=== PATIENT | female | born 1985 | race Caucasian/White ===

== ENCOUNTER → 2016-08-09 | Outpatient (CLI) | payer OTHER ==
--- NOTE | 2016-08-24 02:02 | ECWPNPC ---
PATIENT NAME: ALEC MICHEL : 1985 GENDER: FEMALE VISIT DATE: 08/09/2016 DISCHARGE DATE: 08/09/16 1635 VISIT LOCKED DATE TIME: PHYSICIAN: SYDNEY MULLIGAN RESOURCE: SYDNEY MULLIGAN REASON FOR APPOINTMENT 1. CHRONIC PAIN/LUMBAR HISTORY OF PRESENT ILLNESS TODAY'S VISIT: NOTES: PT PREVIOUSLY SEEN BY RHEUMATOLOGY, NEUROLOGY (MICAH) AND DR QUINTEROS AT [facility].NOTES ONSET OF PAIN OVER ONE YEAR AGO.HAD NO PRIOR TRAUMA OR INJURY. PAIN RANGES FROM LOW BACK TO UPPER SHOULDERS. DID HAVE SOME INTERMITTANT NUMBNESS IN BOTH ARMS AND LEGS. FAY HELPS WITH THIS. RATES PAIN TODAY 6/10. RANGES BETWEEN 3-6/10THE MORE ACTIVITY THE HIGHER THE PAIN, BUT CAN EVEN AWAKEN. NO PAIN IN ARMS OR LEGS OR FEELING OF WEAKNESS. BALANCE HAS BEEN OK. HAD NOTHIS LIKE THIS PRIOR. HAS HAS 4 DIFFERENT MRI'S. HAS COMPLETED 8 WEEKS OF PT WHICH WORSENED AFTER COMPETION. AT PAIN [employer] -WAS PUT ON NSAIDS - NO IMPROVEMENT. TIZANIDINE, BACLOFEN, FLEX, NONE HAVE BEEN EFFECTIVE. HAS BEEN ON CYMBALTA FOR LESS THAN 1 MONTH. ALSO TRIALED ON AMI, NORTRI. SLEEP WAS DETERIORATING BEFORE PAIN STARTED, BUT PRIOR HAD NO SLEEP ISSUES, NO BOWELS, HAS FREQUENT HEADACHES - TENSION TO CLUSTER. ONE EVENT EVENT OF 24 HRS IN LAST 4 MONTHS. NO SKIN CHANES IN SKIN OR HAIR. WAS REFERRED TO DR ROJAS - FOUND WEAR AND TEAR ARTHRITIS, CYST UNDER RIGHT KNEE. ALL LABS WERE NEGATIVE. . NEW PATIENT CONSULT: WHEN DID YOUR PAIN FIRST START? . BRIEFLY DESCRIBE HOW YOUR PAIN STARTED? . HOW DOES YOUR PAIN CHANGE WITH TIME? . DOES YOUR PAIN AWAKEN YOU FROM SLEEP? . HOW MANY HOURS OF SLEEP DO YOU NORMALLY GET? . ANY DIAGNOSTIC TESTING? . FACILITY WHERE TESTS WERE DONE? ____. PAIN TREATMENT TREATMENT YES CANCER HAVE YOU EVER HAD ANY TYPE OF CANCER?NO NO. PAIN SCREENING: PATIENT HAS A COMPLAINT OF ACUTE OR CHRONIC PAIN YES FALL RISK SCREENING: SCREENING :NO FALLS IN THE PAST YEAR ALTMAN INVENTORY: QUESTIONNAIRE ASSESSEDYES SCORE VALUE CALCULATED NO DID REVIEW - DENIES SUICIDAL/HOMICIDAL IDEATION CURRENT MEDICATIONS TAKING GABAPENTIN 300 MG CAPSULE 1 CAPSULE ORALLY THREE TIMES A DAY TAKING BACLOFEN 10 MG TABLET 1 TABLET WITH FOOD OR MILK ORALLY TWO TIMES A DAY TAKING DULOXETINE HCL 30 MG CAPSULE DELAYED RELEASE PARTICLES 1 CAPSULE ORALLY ONCE A DAY MEDICATION LIST REVIEWED AND RECONCILED WITH THE PATIENT PAST MEDICAL HISTORY CHRONIC PAIN ARTHRITIS ALLERGIES BACTRIM: HIVES: ALLERGY SURGICAL HISTORY NONE FAMILY HISTORY FATHER: ALIVE MOTHER: ALIVE 1 SON(S) , 1 DAUGHTER(S) - HEALTHY. . SOCIAL HISTORY GENERAL: TOBACCO USE ARE YOU A:NONSMOKER ARE YOU A:NONSMOKER ALCOHOL OR DRUG TREATMENTNO PATIENT: ____. SCREENING/ASSESSMENT TOOL NUTRITION ASSESSEDYES ARE YOU ON ANY SPECIAL DIET?NO ANY SIGNIFICANT CHANGES RELATED TO EATING, WEIGHT GAIN/LOSS, OR BOWEL HABITS?NO IF YES, IS YOUR PRIMARY CARE PROVIDER AWARE OF THIS?NO SPECIAL NEEDS LEVEL OF CARE? SELF, GLASSES: NO, CONTACTS: NO, HEARING AIDS: NO, DENTURES: NO, WALKER: NO, CANE: NO, WHEELCHAIR: NO, REFERRALS NEEDED: NO. ALCOHOL SCREENING POINTS1 INTERPRETATIONNEGATIVE RECREATIONAL DRUG USE DRUG USE?NO DRUG USE?YES CAFFEINE CAFFEINE USE?NO CAFFEINE USE?YES HOW OFTEN AND HOW MUCH? 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 DIET: REGULAR. MARITAL STATUS: . OTHERS AT HOME: CHILDREN. MORAVIAN: NONE. LEARNING BARRIERS / SPECIAL NEEDS VISION IMPAIRED?YES : WEARS GLASSES LEARNING PREFERENCES?YES :DEMONSTRATION/VERBAL INSTRUCTION MISCELLANEOUS: PLAN OF CARE REVIEWED WITH PT.. MEDICATION ABUSE NO PSYCHOLOGICAL HX TREATMENTNO TREATMENTNO PAIN CLINIC PFS, CLERGY, PUBLIC HEALTH REFERRALS CLERGY REFERRAL NEEDED?NO WAS THE PROVIDER NOTIFIED OF ANY PERTINENT INFO?NO PFS REFERRAL NEEDED?NO PUBLIC HEALTH REFERRAL NEEDED?NO PFS REFERRAL NEEDED?NO CLERGY REFERRAL NEEDED?NO ADVANCED DIRECTIVES HEALTH CARE PROXY?NO POWER OF AIRCRAFT LAUNCH AND RECOVERY TECHNICIAN?NO HEALTH CARE PROXY?NO POWER OF AIRCRAFT LAUNCH AND RECOVERY TECHNICIAN?NO HOSPITALIZATION/MAJOR DIAGNOSTIC PROCEDURE NONE REVIEW OF SYSTEMS CONSTITUTIONAL: ANY CHANGE IN YOUR MEDICAL CONDITION? YES RECENTLY INFORMED SHE HAS BURSITIS IN RIGHT HIP, RIGHT KNEE CYST, AND ARTHRITIS . CHILLS NO . FEVER NO . INFECTION: DO YOU HAVE NEW INFECTIONS? NO . DO YOU HAVE HISTORY OF MRSA? NO . MUSCULOSKELETAL: ANY NEW PATTERNS OF PAIN OR NUMBNESS? NO . SYTEMIC LUPUS NO . GASTROENTEROLOGY: ANY NEW CHANGE IN BOWEL CONTROL? NO . BARRETTS ESOPHAGUS NO . CIRRHOSIS NO . HEPATITIS NO . LIVER FAILURE NO . ACID REFLUX NO . UNEXPLAINED WEIGHT LOSS NO . GENITOURINARY: ANY NEW CHANGE IN BLADDER CONTROL? NO . IS THERE A CHANCE YOU COULD BE ? NO . HEMATOLOGY/LYMPH: DO YOU TAKE ANY BLOOD THINNERS? (FOR EXAMPLE- COUMADIN, PLAVIX, AGGRENOX, PLATEL, PRADAXA, OR XARELTO) NO . WHEN WAS YOUR LAST DOSE? DATE: TIME: . LOW PLATELET COUNT NO . SICKLE CELL DISEASE NO . VON WILLIEBRANDS NO . FACTOR V LEIDEN NO . THALLASEMIA NO . ANEMIA NO . EASY BRUISING NO . NEUROLOGY: HAVE YOU FALLEN IN THE PAST 6 MONTHS? NO . ANY NEW EXTREMITY NUMBNESS OR WEAKNESS? NO . HEAD INJURY NO . DEMENTIA NO . CEREBRAL PALSY NO . MULTIPLE SCLEROSIS NO . DIZZINESS NO . HEADACHE YES INTERMITTENT . STROKES NO . VERTIGO NO . CARDIOLOGY: DO YOU HAVE A PACEMAKER OR DEFIBRILLATOR? NO . ANGINA NO . HEART ATTACK NO . HEART SURGERY NO . CONGESTIVE HEART FAILURE/FLUID OVERLOAD NO . CHEST PAIN NO . HIGH BLOOD PRESSURE NO . IRREGULAR HEART BEAT NO . RESPIRATORY: HAVE YOU BEEN SICK IN THE PAST WEEK? NO . FEVER NO . FLU LIKE SYMPTOMS? NO . CPAP NO . BYPAP NO . ASTHMA NO . EMPHYSEMA NO . CHRONIC LUNG DISEASES NO . SHORTNESS OF BREATH ON EXERTION NO . DO YOU USE ANY TYPE OF TOBACCO (SMOKE, SMOKELESS, CHEW)? NO . COUGH NO . SNORING NO . INTEGUMENTARY: DO YOU HAVE ANY RASHES OR OPEN SORES? NO . ALLERGIC/IMMUNO: ARE YOU ALLERGIC TO SHELLFISH OR IV DYE? NO . ANY NEW ALLERGIES? NO . PSYCHIATRIC: DO YOU HAVE THOUGHTS OF HURTING YOURSELF OR SOMEONE ELSE? NO . ARE YOU ABUSED, NEGLECTED, OR IN AN UNSAFE ENVIRONMENT? NO . ENDOCRINOLOGY: ARE YOU DIABETIC? NO . THYROID DISORDER NO . OTHER: DO YOU NEED ANY PRESCRIPTIONS? NO . IF YES, PLEASE LIST: ____ . ANY NEW PROBLEMS WITH YOUR MEDICATIONS? NO . WHEN DID YOU LAST EAT? ____ . WHEN DID YOU LAST DRINK? ____ . WHAT DID YOU LAST DRINK? ____ . NAME OF PERSON DRIVING YOU HOME? ____ . DO YOU HAVE ANY OTHER QUESTIONS OR CONCERNS NO . REVIEWED BY: PROVIDER: SYDNEY CRUZ . VITAL SIGNS WT 168 LBS, HT 65 IN, BMI 27.95 INDEX, BP 119/69 MM HG, HR 82 /MIN, RR 16 /MIN, TEMP 97.0 F, OXYGEN SAT % 98%, NA INITIALS SC 15:14, REVIEWED BY: MONIE. EXAMINATION GENERAL EXAMINATION: PSYCHALERT , ORIENTED X 3 , APPROPRIATE MOOD AND AFFECT , GOOD EYE CONTACT. HEENT:NORMOCEPHALIC, NO LYMPHADENOPATHY, NO THYROMEGLY. LUNGS:CLEAR TO AUSCULTATION BILATERALLY, NO WHEEZES, RALES OR RHONCHI. HEART:NORMAL S1S2, NO MURMURS, CLICK OR RUBS. ABDOMEN:SOFT AND NOT TENDER, BOWEL SOUNDS ACTIVE IN ALL QUADRANTS. MUSCULOSKELETAL:MUSCLE STRENGTH TESTING 5/5 BILATERAL UPPER AND LOWER EXTREMITIES. ABLE TO FLEX TO 90 DEREES, EXTEND TO 20 DEGREES, AND ROTATE WITHOUT DIFFICULTY. MIN PAIN WITH STRAIGHT LEG RAISE BILATERALLY. , PALPATION: POSITIVE FOR PAIN OVER L/S SPINE. POSITIVE FOR PAIN OVER L/S PARSPINALS, ELICITED WITH PALPATION OVER CERVICAL SPINOUS PROCESSES AND ACROSS THE TRAPEZIUS MUSCLES BILATERALLY. RESTRICTION OF ROM IS NOTED. , ELICITED WITH PALPATION OVER LUMBAR PARAVERTEBRAL MUSCLES AND INTO THE SECRUM. RESTRICTION OF ROM IN THIS AREA. NEUROLOGIC EXAM:DTR'S 2+ BILATERAL UPPER AND LOWER EXTREMITIES. NO SENSORY DEFICIET ELICITED TO LIGHT TOUCH UPPER OR LOWER EXTREMITIES. 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 CONSIDER INCEREASE IN DOSING SLOWLY TO 20 MG THREE TIMES PER DAY FOR SPASTICITY.CONTINUE CYMBALTA - RECOMMEND SLOWING INCREASING TO MAX 90-120 MG PER DAY. CONTINUE TENS. CONSIDER TRIGGER POINT INJECTIONS FOR FUTURE. PROCEDURE CODES FA211 ESTABILISHED PATIENT [facility] CHARGE FOLLOW UP 4-6 WEEKS ELECTRONICALLY SIGNED BY CATINA GONZALEZ ON 08/23/2016 AT 01:55 PM EST DISCLAIMER : THIS IS A VISIT SUMMARY EXTRACTED FROM THE [employer] CHART. IT IS NOT A COPY OF THE [employer] PROGRESS NOTE. MTDD
== END ==
LOC: M PAIN 15:20
PROVIDERS: ATTEND Nurse Practitioner Family
DX: Z09 Encounter for follow-up examination after completed treatment for conditions other than malignant neoplasm (principal); G89.29 Other chronic pain; M79.1 Myalgia; M51.36 Other intervertebral disc degeneration, lumbar region; Q07.00 Arnold-Chiari syndrome without spina bifida or hydrocephalus; M19.90 Unspecified osteoarthritis, unspecified site; Z88.8 Allergy status to other drugs, medicaments and biological substances; Z79.899 Other long term (current) drug therapy

== ENCOUNTER → 2016-08-11 | Outpatient (CLI) | payer OTHER | LOC: M LAB 16:21 | PROVIDERS: ATTEND Nurse Practitioner Family | DX: M79.1 Myalgia (principal) ==

== ENCOUNTER → 2016-09-06 | Outpatient (CLI) | payer OTHER ==
--- NOTE | 2016-09-23 01:54 | ECWPNPC ---
PATIENT NAME: ALEC MICHEL : 1985 GENDER: FEMALE VISIT DATE: 09/06/2016 DISCHARGE DATE: 09/06/16 1537 VISIT LOCKED DATE TIME: PHYSICIAN: SYDNEY MULLIGAN RESOURCE: SYDNEY MULLIGAN REASON FOR APPOINTMENT 1. BACK HISTORY OF PRESENT ILLNESS HISTORY OF PRESENT ILLNESS: PAIN THE PATIENT DESCRIBES THE PAIN... FALL RISK SCREENING: SCREENING :NO FALLS IN THE PAST YEAR TODAY'S VISIT: NOTES: RATES PAIN TODAU 8/10. DESCRIBES PAIN INTERMITTANT, ACHING, TENDER, THROBBING, AND SORE. PAIN IS WORSE IN THE LOW BACK WITH NO RADIATION TO HIPS OR LEGS. NO RECENT FALLS. VERY DIFFICULT TO STAY ASLEEP DUE TO PAIN. . CURRENT MEDICATIONS TAKING GABAPENTIN 300 MG CAPSULE 1 CAPSULE ORALLY THREE TIMES A DAY TAKING BACLOFEN 10 MG TABLET 1 TABLET WITH FOOD OR MILK ORALLY TWO TIMES A DAY TAKING DULOXETINE HCL 30 MG CAPSULE DELAYED RELEASE PARTICLES 1 CAPSULE ORALLY ONCE A DAY PAST MEDICAL HISTORY CHRONIC PAIN ARTHRITIS ALLERGIES BACTRIM: HIVES: ALLERGY SOCIAL HISTORY GENERAL: TOBACCO USE ARE YOU A:NONSMOKER LEARNING BARRIERS / SPECIAL NEEDS ORIENTED TO PLAN OF CARE: PATIENT, PAIN MANAGEMENT PATIENT, ORIENTED TO PLAN OF CARE: PATIENT, PAIN MANAGEMENT PATIENT. NEW PATIENT PAIN DIARY TODAY'S VISITNOTES FROM 0-10, WHAT LEVEL IS YOUR PAIN TODAY?0 PAIN CLINIC PFS, CLERGY, PUBLIC HEALTH REFERRALS PFS REFERRAL NEEDED?NO CLERGY REFERRAL NEEDED?NO PUBLIC HEALTH REFERRAL NEEDED?NO WAS THE PROVIDER NOTIFIED OF ANY PERTINENT INFO?NO PFS REFERRAL NEEDED?NO CLERGY REFERRAL NEEDED?NO PUBLIC HEALTH REFERRAL NEEDED?NO WAS THE PROVIDER NOTIFIED OF ANY PERTINENT INFO?NO REVIEW OF SYSTEMS CONSTITUTIONAL: ANY CHANGE IN YOUR MEDICAL CONDITION? NO . CHILLS NO . FEVER NO . INFECTION: DO YOU HAVE NEW INFECTIONS? NO . DO YOU HAVE HISTORY OF MRSA? NO . MUSCULOSKELETAL: ANY NEW PATTERNS OF PAIN OR NUMBNESS? NO . GASTROENTEROLOGY: ANY NEW CHANGE IN BOWEL CONTROL? NO . GENITOURINARY: ANY NEW CHANGE IN BLADDER CONTROL? NO . IS THERE A CHANCE YOU COULD BE ? NO . HEMATOLOGY/LYMPH: DO YOU TAKE ANY BLOOD THINNERS? (FOR EXAMPLE- COUMADIN, PLAVIX, AGGRENOX, PLATEL, PRADAXA, OR XARELTO) NO . WHEN WAS YOUR LAST DOSE? DATE: TIME: . NEUROLOGY: HAVE YOU FALLEN IN THE PAST 6 MONTHS? NO . ANY NEW EXTREMITY NUMBNESS OR WEAKNESS? NO . CARDIOLOGY: DO YOU HAVE A PACEMAKER OR DEFIBRILLATOR? NO . RESPIRATORY: HAVE YOU BEEN SICK IN THE PAST WEEK? NO . FEVER NO . FLU LIKE SYMPTOMS? NO . COUGH NO . INTEGUMENTARY: DO YOU HAVE ANY RASHES OR OPEN SORES? NO . ALLERGIC/IMMUNO: ARE YOU ALLERGIC TO SHELLFISH OR IV DYE? NO . ANY NEW ALLERGIES? NO . PSYCHIATRIC: DO YOU HAVE THOUGHTS OF HURTING YOURSELF OR SOMEONE ELSE? NO . ARE YOU ABUSED, NEGLECTED, OR IN AN UNSAFE ENVIRONMENT? NO . ENDOCRINOLOGY: ARE YOU DIABETIC? NO . OTHER: DO YOU NEED ANY PRESCRIPTIONS? NO . IF YES, PLEASE LIST: ____ . ANY NEW PROBLEMS WITH YOUR MEDICATIONS? NO . WHEN DID YOU LAST EAT? ____ . WHEN DID YOU LAST DRINK? ____ . WHAT DID YOU LAST DRINK? ____ . NAME OF PERSON DRIVING YOU HOME? ____ . DO YOU HAVE ANY OTHER QUESTIONS OR CONCERNS NO . REVIEWED BY: PROVIDER: SYDNEY CRUZ . VITAL SIGNS WT 173 LBS, HT 65 IN, BMI 28.79 INDEX, BP 128/79 MM HG, HR 66 /MIN, RR 16 /MIN, TEMP 96.5 F, OXYGEN SAT % 99, NA INITIALS TL 1514. EXAMINATION GENERAL EXAMINATION: PSYCHALERT , ORIENTED X 3 , APPROPRIATE MOOD AND AFFECT , GOOD EYE CONTACT. LUNGS:CLEAR TO AUSCULTATION BILATERALLY, NO WHEEZES, RALES OR RHONCHI. HEART:NORMAL S1S2, NO MURMURS, CLICK OR RUBS. MUSCULOSKELETAL:MUSCLE STRENGTH TESTING 5/5 BILATERAL UPPER AND LOWER EXTREMITIES.MIN PAIN WITH STRAIGHT LEG RAISE BILATERALLY. , PALPATION: POSITIVE FOR PAIN OVER L/S SPINE. POSITIVE FOR PAIN OVER L/S PARSPINALS, ELICITED WITH PALPATION OVER CERVICAL SPINOUS PROCESSES AND ACROSS THE TRAPEZIUS MUSCLES BILATERALLY. RESTRICTION OF ROM IS NOTED. , ELICITED WITH PALPATION OVER LUMBAR PARAVERTEBRAL MUSCLES AND INTO THE SECRUM. RESTRICTION OF ROM IN THIS AREA. NEUROLOGIC EXAM:DTR'S 2+ BILATERAL UPPER AND LOWER EXTREMITIES. NO SENSORY DEFICIET ELICITED TO LIGHT TOUCH UPPER OR LOWER EXTREMITIES. 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 START VITAMIN D 2000 IU DAILY. CLINICAL NOTES: ISTOP REGISTRY REVIEWED AND DEMNOSTRATES COMPLLIANCE. BRINGS IN MEDICATIONS WHICH IS APPROPRIATE FOR WHAT WAS DISPENSED. RECENT URINE TOXICOLOGY REVIEWED. NO UNAUTHORIZED MEDICATIONS. NO ILLICIT SUBSTANCES AND PRESCRIBED MEDICATIONS WERE PRESENT. PT WAS REFFERRED FOR LOW BACK PAIN. TODAY BRINGS NOTES FORM HER SURGEON DR KIRSTEN SANTOS AND FROM DR OLIVIA. IN PARTICULAR THERE WAS A REQUEST FOR TRANSFORAMINAL CERVICAL FACET BLOCK.RIGHT SIDE C6-C7. PROCEDURE CODES FA211 ESTABILISHED PATIENT [facility] CHARGE DISPOSITION & COMMUNICATION FOLLOW UP 4-6 WEEKS ELECTRONICALLY SIGNED BY CATINA GONZALEZ ON 09/22/2016 AT 01:11 PM EST DISCLAIMER : THIS IS A VISIT SUMMARY EXTRACTED FROM THE [employer] CHART. IT IS NOT A COPY OF THE [employer] PROGRESS NOTE. BRIDGER
== END ==
LOC: M PAIN 15:00
PROVIDERS: ATTEND Nurse Practitioner Family
DX: Z09 Encounter for follow-up examination after completed treatment for conditions other than malignant neoplasm (principal); G89.29 Other chronic pain; M79.1 Myalgia; M51.36 Other intervertebral disc degeneration, lumbar region; Q07.00 Arnold-Chiari syndrome without spina bifida or hydrocephalus; M19.90 Unspecified osteoarthritis, unspecified site; Z88.1 Allergy status to other antibiotic agents; Z79.899 Other long term (current) drug therapy

== ENCOUNTER → 2016-10-21 | Outpatient (REF) | payer OTHER | LOC: M LAB REF 13:12 | PROVIDERS: ATTEND Nurse Practitioner Family | DX: Z12.4 Encounter for screening for malignant neoplasm of cervix (principal) ==

== ENCOUNTER 2016-11-08 16:01 | Emergency (ER) | payer OTHER ==
[~2016-11-08] VITALS: Ht 167.6 cm; Wt 80.3 kg
[2016-11-08 16:02] VITALS: BP 111/68
[2016-11-08] MEDS ORDERED: ROBA500T PO (16:18)
[2016-11-08] MEDS ORDERED: ROBA750T4 PO (16:18)
[2016-11-08] MEDS ORDERED: DULO30CA PO (16:18)
[2016-11-08] MEDS ORDERED: GABA-283 PO (16:18)
[2016-11-08] MEDS ORDERED: BCP PO (16:18)
[2016-11-08] MEDS ORDERED: BACI500O8 TOP (16:54)
== END 2016-11-08 17:02 | disposition home or self-care (01) ==
LOC: M ED 16:57
DX: S61.200A Unspecified open wound of right index finger without damage to nail, initial encounter (principal); W22.8XXA Striking against or struck by other objects, initial encounter; Y92.89 Other specified places as the place of occurrence of the external cause; Y93.89 Activity, other specified; Y99.8 Other external cause status; G89.29 Other chronic pain; F17.210 Nicotine dependence, cigarettes, uncomplicated; Z88.2 Allergy status to sulfonamides; Z88.8 Allergy status to other drugs, medicaments and biological substances; Z79.899 Other long term (current) drug therapy; Z79.3 Long term (current) use of hormonal contraceptives; F41.9 Anxiety disorder, unspecified; M54.9 Dorsalgia, unspecified

== ENCOUNTER → 2017-01-04 | Outpatient (REF) | payer OTHER ==
[~2017-01-04] MED LIST: BACI500O8 TOP; BCP PO; DULO30CA PO; GABA-283 PO; ROBA500T PO; ROBA750T4 PO
== END ==
LOC: M LAB REF 13:30
PROVIDERS: ATTEND Surgery
DX: D48.5 Neoplasm of uncertain behavior of skin (principal)

== ENCOUNTER → 2017-01-10 | Outpatient (CLI) | payer OTHER | LOC: M LAB 17:30 | PROVIDERS: ATTEND Nurse Practitioner Family | DX: E55.9 Vitamin D deficiency, unspecified (principal) ==

== ENCOUNTER → 2017-01-26 | Outpatient (CLI) | payer OTHER ==
[~2017-01-26] MED LIST changes: +ADDE1TAB14 PO; +PERC5TAB12 PO
--- NOTE | 2017-01-26 17:10 | REP ---
MRI study of the right knee without and with IV gadolinium: History: Lesion in the distal femur on radiographs from 05/24/2016. Knee pain. Technique: Sagittal axial and coronal imaging planes utilized. T1 and T2 weighted scans were obtained with and without with and without fat saturation. MRI findings: Pre-gadolinium enhanced images demonstrate a eccentric small benign appearing lesion in the medial aspect of the distal femoral metaphysis. This measures 8 mm in greatest diameter and corresponds to the radiolucent lesion seen radiographically. There is a low T1 low T2 signal intensity margin. The lesion is well defined with no adjacent marrow edema. No periosteal reaction is seen. No extra-articular or extra osseous soft tissue swelling is seen. The finding is compatible with small enchondroma or cyst. No contrast enhancement is appreciated in the lesion or elsewhere. No other bony lesion is seen. There is no evidence of joint effusion. No Quintanilla's cyst is seen. The anterior posterior cruciate ligaments are intact. Patellar and quadriceps tendons are unremarkable. Medial and lateral collateral ligamentous complexes are intact. No meniscal tear is appreciated. Articular cartilage is unremarkable. Impression: 8 mm well circumscribed benign appearing lesion in the distal femur metaphysis medially. Enchondroma versus cyst. Otherwise negative MRI study of the right knee. Signed by Titus Cohn MD 01/26/2017 08:26 P
== END ==
LOC: M RAD 14:53
PROVIDERS: ATTEND Nurse Practitioner Family
DX: M25.861 Other specified joint disorders, right knee (principal)

== ENCOUNTER → 2017-05-09 | Outpatient (REF) | payer OTHER ==
[2017-05-09 15:16] LABS: ANION GAP 8 MEQ/L (8-16); BLOOD UREA NITROGEN 13 MG/DL (7-18); CARBON DIOXIDE LEVEL 26 MEQ/L (21-32); CHLORIDE LEVEL 110 MEQ/L (98-107); GLOMERULAR FILTRATION RATE > 60.0 (>60); GLUCOSE, FASTING 106 MG/DL (70-105); POTASSIUM SERUM 4.4 MEQ/L (3.5-5.1); SODIUM LEVEL 144 MEQ/L (136-145)
== END ==
LOC: M LAB REF 12:21
PROVIDERS: ATTEND Nurse Practitioner Family
DX: E55.9 Vitamin D deficiency, unspecified (principal)

== ENCOUNTER 2017-05-19 13:41 | Emergency (ER) | payer OTHER ==
[~2017-05-19] VITALS: Ht 167.6 cm; Wt 75.0 kg
[~2017-05-19 13:41] MED LIST changes: -ADDE1TAB14 PO; -PERC5TAB12 PO
[2017-05-19] MEDS ORDERED: ADDE1TAB14 PO (14:12)
[2017-05-19] MEDS ORDERED: PERCOCET 5MG/325MG TAB PO ONE (14:45)
--- NOTE | 2017-05-19 15:43 | REP ---
Left humerus two views : There is no fracture or dislocation. Mineralization and joint spaces are normal. There are no calcifications or foreign bodies. Impression: Negative humerus . Signed by Iraj Fernandez MD 05/19/2017 03:34 P
--- NOTE | 2017-05-19 15:44 | REP ---
Left elbow for views: There is a nondisplaced fracture of the radial head and hemarthrosis. There is no dislocation. Mineralization is normal. Signed by Iraj Fernandez MD 05/19/2017 03:35 P
--- NOTE | 2017-05-19 15:45 | REP ---
Left forearm two views: The nondisplaced fracture the radial head is best visualized on the elbow series. No other fracture is identified. No dislocation. Mineralization is normal. No calcifications or foreign bodies. Signed by Iraj Fernandez MD 05/19/2017 03:36 P
--- NOTE | 2017-05-19 15:47 | REP ---
Left hand four views : There is no fracture or dislocation. Mineralization and joint spaces are normal. There are no calcifications or foreign bodies. Impression: Negative left hand . Signed by Iraj Fernandez MD 05/19/2017 03:38 P
--- NOTE | 2017-05-19 15:47 | REP ---
Left wrist the views : There is no fracture or dislocation. Mineralization and joint spaces are normal. There are no calcifications or foreign bodies. Impression: Negative wrist . Signed by Iraj Fernandez MD 05/19/2017 03:38 P
[2017-05-19] MEDS ORDERED: PERC5TAB12 PO (16:48)
[2017-05-19 17:05] VITALS: BP 141/78
== END 2017-05-19 17:08 | disposition home or self-care (01) ==
LOC: M ED 13:41
DX: S52.125A Nondisplaced fracture of head of left radius, initial encounter for closed fracture (principal); W01.0XXA Fall on same level from slipping, tripping and stumbling without subsequent striking against object, initial encounter; Y92.9 Unspecified place or not applicable; Y93.9 Activity, unspecified; Y99.0 Civilian activity done for income or pay; G89.29 Other chronic pain; M71.9 Bursopathy, unspecified; M19.90 Unspecified osteoarthritis, unspecified site; Z79.899 Other long term (current) drug therapy; Z88.2 Allergy status to sulfonamides; Z88.1 Allergy status to other antibiotic agents

== ENCOUNTER → 2017-07-14 | Outpatient (REF) | payer OTHER, MEDICAID ==
[~2017-07-14] MED LIST changes: +ADDE1TAB14 PO; +PERC5TAB12 PO
== END ==
LOC: M LAB REF 17:54
PROVIDERS: ATTEND Nurse Practitioner Adult Health
DX: Z01.84 Encounter for antibody response examination (principal)

== ENCOUNTER → 2017-10-28 | Outpatient (CLI) | payer OTHER | LOC: M RAD 12:08 | DX: M54.5 Low back pain (principal) | CPT/HCPCS: 72202 ==

== ENCOUNTER 2017-12-30 13:33 | Emergency (ER) | payer OTHER ==
[2017-12-30] MEDS: NS 1,000 ML IV (14:40)
[2017-12-30] MEDS: KETOROLAC 30 MG/ML VIAL (J1885) IV (14:40)
[2017-12-30] MEDS: diphenhydrAMINE INJ 50MG/ML VIAL (J1200) IV (14:40)
[2017-12-30] MEDS: METOCLOPRAMIDE INJ 10MG/2ML VIAL (J2765) IV (14:40)
[2017-12-30 14:52] LABS: BASO % 0.6 % (0.0-1.0); EOS % 0.6 % (0.0-3.0); HEMATOCRIT 37.8 % (36.0-47.0); HEMOGLOBIN 12.6 g/dl (12.0-15.5); IMMATURE GRANULOCYTE % 0.1 % (0-3.0); LYMPH # 2.8 10^3/uL (1.5-4.5); LYMPH % 39.6 % (24.0-44.0); MEAN CORPUSCULAR HEMOGLOBIN 30.6 pg (27.0-33.0); MEAN CORPUSCULAR HGB CONC 33.3 g/dl (32.0-36.5); MEAN CORPUSCULAR VOLUME 91.7 fl (80.0-96.0); MONO # 0.5 10^3/uL (0.0-0.8); NEUTROPHILS # 3.6 10^3/uL (1.8-7.7); NEUTROPHILS % 52.1 % (36.0-66.0); PLATELET COUNT, AUTOMATED 327 10^3/uL (150-450); RED BLOOD COUNT 4.12 10^6/uL (4.00-5.40); RED CELL DISTRIBUTION WIDTH 11.8 % (11.5-14.5)
[2017-12-30 15:12] LABS: CONTROL LINE HCG INT CTR LINE PRESENT; HCG, SERUM QUALITATIVE NEGATIVE (NEGATIVE)
[2017-12-30 15:25] LABS: ALBUMIN 3.8 GM/DL (3.2-5.2); ALBUMIN/GLOBULIN RATIO 1.09 (1.00-1.93); ALKALINE PHOSPHATASE 65 U/L (45-117); ALT/SGPT 24 U/L (12-78); ANION GAP 6 MEQ/L (8-16); AST/SGOT 14 U/L (7-37); BILIRUBIN,DIRECT 0.1 MG/DL (0.0-0.2); BILIRUBIN,TOTAL 0.5 MG/DL (0.2-1.0); BLOOD UREA NITROGEN 9 MG/DL (7-18); CALCIUM LEVEL 8.7 MG/DL (8.5-10.1); CARBON DIOXIDE LEVEL 27 MEQ/L (21-32); CHLORIDE LEVEL 107 MEQ/L (98-107); CREATININE FOR GFR 0.69 MG/DL (0.55-1.30); GLOMERULAR FILTRATION RATE > 60.0 (>60); GLUCOSE, FASTING 97 MG/DL (70-100); POTASSIUM SERUM 3.8 MEQ/L (3.5-5.1); SODIUM LEVEL 140 MEQ/L (136-145); THYROID STIMULATING HORMONE 0.898 uIU/ML (0.358-3.740); TOTAL PROTEIN 7.3 GM/DL (6.4-8.2)
== END 2017-12-30 16:23 | disposition home or self-care (01) ==
LOC: M ED 13:33
DX: G43.909 Migraine, unspecified, not intractable, without status migrainosus (principal); G93.5 Compression of brain; Z79.899 Other long term (current) drug therapy; Z88.2 Allergy status to sulfonamides; Z88.8 Allergy status to other drugs, medicaments and biological substances
CPT/HCPCS: J1200

== ENCOUNTER → 2018-01-20 | Outpatient (CLI) | payer OTHER ==
[2018-01-20 13:49] LABS: RUBELLA IgG QUALITATIVE IMMUNE (IMMUNE)
[2018-01-21 08:11] LABS: RUBEOLA IgG ANTIBODY 66.1 AU/mL (Immune >29.9)
[2018-01-21 08:11] LABS: MUMPS VIRUS IgG ANTIBODY <9.0 AU/mL (Immune >10.9)
== END ==
LOC: M WUC 12:20
DX: Z02.1 Encounter for pre-employment examination (principal)
CPT/HCPCS: 86762

== ENCOUNTER → 2018-01-25 | Outpatient (CLI) | payer OTHER | LOC: M WUC 13:21 | DX: R29.91 Unspecified symptoms and signs involving the musculoskeletal system (principal) | CPT/HCPCS: 72072 ==

== ENCOUNTER → 2018-01-25 | Outpatient (CLI) | payer OTHER ==
[2018-01-25 16:23] LABS: BASO # 0.1 10^3/uL (0.0-0.2); BASO % 0.7 % (0.0-1.0); EOS # 0.1 10^3/uL (0.0-0.50); EOS % 1.5 % (0.0-3.0); HEMOGLOBIN 12.4 g/dl (12.0-15.5); IMMATURE GRANULOCYTE % 0.4 % (0-3.0); LYMPH # 2.8 10^3/uL (1.5-4.5); LYMPH % 33.7 % (24.0-44.0); MEAN CORPUSCULAR HEMOGLOBIN 30.8 pg (27.0-33.0); MEAN CORPUSCULAR HGB CONC 32.6 g/dl (32.0-36.5); MEAN CORPUSCULAR VOLUME 94.3 fl (80.0-96.0); MONO # 0.5 10^3/uL (0.0-0.8); MONO % 6.6 % (0.0-5.0); NEUTROPHILS # 4.7 10^3/uL (1.8-7.7); NEUTROPHILS % 57.1 % (36.0-66.0); PLATELET COUNT, AUTOMATED 354 10^3/uL (150-450); RED BLOOD COUNT 4.03 10^6/uL (4.00-5.40); RED CELL DISTRIBUTION WIDTH 11.9 % (11.5-14.5); WHITE BLOOD COUNT 8.2 10^3/uL (4.0-10.0)
[2018-01-25 16:33] LABS: ALBUMIN 3.7 GM/DL (3.2-5.2); ALBUMIN/GLOBULIN RATIO 1.23 (1.00-1.93); ALKALINE PHOSPHATASE 64 U/L (45-117); ALT/SGPT 29 U/L (12-78); ANION GAP 8 MEQ/L (8-16); AST/SGOT 14 U/L (7-37); BILIRUBIN,TOTAL 0.3 MG/DL (0.2-1.0); BLOOD UREA NITROGEN 10 MG/DL (7-18); CALCIUM LEVEL 8.6 MG/DL (8.5-10.1); CARBON DIOXIDE LEVEL 29 MEQ/L (21-32); CHLORIDE LEVEL 106 MEQ/L (98-107); CREATININE FOR GFR 0.65 MG/DL (0.55-1.30); GLOMERULAR FILTRATION RATE > 60.0 (>60); GLUCOSE, FASTING 89 MG/DL (70-100); POTASSIUM SERUM 4.3 MEQ/L (3.5-5.1); SODIUM LEVEL 143 MEQ/L (136-145); TOTAL PROTEIN 6.7 GM/DL (6.4-8.2)
== END ==
LOC: M WUC 13:19
DX: L70.0 Acne vulgaris (principal)
CPT/HCPCS: 80053

== ENCOUNTER → 2018-04-20 | Outpatient (REF) | payer OTHER ==
[2018-04-20 19:46] LABS: RHEUMATOID FACTOR QUANT < 10.0 IU/ML (<15.0)
[2018-04-20 19:59] LABS: TOTAL 25(OH) VITAMIN D 22.2 NG/ML (30.0-100.0)
[2018-04-20 20:28] LABS: ERYTHROCYTE SEDIMENTATION RATE 5 mm/hr (0-20)
[2018-04-22 12:59] LABS: ANTINUCLEAR ANTIBODIES DIRECT Negative (Negative)
== END ==
LOC: M LAB REF 19:23
DX: G89.4 Chronic pain syndrome (principal); E55.9 Vitamin D deficiency, unspecified
CPT/HCPCS: 82306

== ENCOUNTER 2018-05-11 12:09 | Emergency (ER) | payer OTHER | END 2018-05-11 12:58 | disposition home or self-care (01) | LOC: M ED 12:09 | DX: H60.11 Cellulitis of right external ear (principal); Z79.899 Other long term (current) drug therapy; Z88.2 Allergy status to sulfonamides; Z88.8 Allergy status to other drugs, medicaments and biological substances | CPT/HCPCS: 99282 ==

== ENCOUNTER → 2018-09-18 | Outpatient (REF) | payer OTHER ==
[~2018-09-18] MED LIST changes: +ACNE1GEL2 TOP; -GABA-283 PO; +GABA-845 PO; +KEFL500C17 PO; +MELO15TA28 PO
[2018-09-18 20:30] LABS: CHLAMYDIA DNA AMPLIFICATION NEGATIVE (NEGATIVE); GC DNA AMPLIFICATION NEGATIVE (NEGATIVE)
[2018-09-18 22:17] LABS: HIV 1&2 SCREEN CENTAUR NEGATIVE (NEGATIVE)
== END ==
LOC: M LAB REF 18:03
PROVIDERS: ATTEND Nurse Practitioner Adult Health
DX: Z11.3 Encounter for screening for infections with a predominantly sexual mode of transmission (principal)

== ENCOUNTER → 2018-10-23 | Outpatient (REF) | payer OTHER | LOC: M LAB REF 18:48 | PROVIDERS: ATTEND Nurse Practitioner Adult Health | DX: Z11.3 Encounter for screening for infections with a predominantly sexual mode of transmission (principal) ==

== ENCOUNTER → 2018-11-14 | Outpatient (REF) | payer OTHER ==
[~2018-11-14] MED LIST changes: -DULO30CA PO; +DULO30CA9 PO
[2018-11-16 14:11] LABS: Lyme Disease IgG/IgM Antibodie <0.91 ISR (0.00-0.90); Lyme Disease IgM Ab Quantitati <0.80 index (0.00-0.79)
== END ==
LOC: M LAB REF 17:24
PROVIDERS: ATTEND Nurse Practitioner Adult Health
DX: G89.4 Chronic pain syndrome (principal)

== ENCOUNTER → 2019-02-28 | Outpatient (REF) | payer OTHER, MEDICAID ==
[2019-02-28 18:08] LABS: CHLAMYDIA DNA AMPLIFICATION NEGATIVE (NEGATIVE); GC DNA AMPLIFICATION NEGATIVE (NEGATIVE)
[2019-03-03 14:07] LABS: HPV HYBRID CAPTURE II Negative (Negative)
== END ==
LOC: M LAB REF 11:16
PROVIDERS: ATTEND Nurse Practitioner Adult Health
DX: Z12.4 Encounter for screening for malignant neoplasm of cervix (principal)

== ENCOUNTER 2019-05-30 14:11 | Outpatient (RCR) | payer OTHER | END 2019-05-31 | disposition home or self-care (01) | LOC: M PT 14:11 | PROVIDERS: ATTEND Nurse Practitioner Adult Health | DX: M50.21 Other cervical disc displacement, high cervical region (principal) ==

== ENCOUNTER 2019-06-19 14:26 | Outpatient (RCR) | payer OTHER | END 2019-06-30 | LOC: M PT 14:26 | PROVIDERS: ATTEND Nurse Practitioner Adult Health | DX: M50.21 Other cervical disc displacement, high cervical region (principal) ==

== ENCOUNTER → 2019-06-22 | Outpatient (REF) | payer OTHER | LOC: M LAB REF 17:30 | PROVIDERS: ATTEND Dermatology | DX: D22.4 Melanocytic nevi of scalp and neck (principal) ==

== ENCOUNTER → 2020-12-02 | Outpatient (CLI) | payer OTHER ==
--- NOTE | 2020-12-02 16:24 | REP ---
INDICATION: RIGHT HIP PAIN COMPARISON: None. TECHNIQUE: AP and frog-lateral views of the right hip FINDINGS: Mild increased sclerosis along the acetabular roof with minimal joint space narrowing. No further degenerative changes. No acute fracture or dislocation. IMPRESSION: Mild degenerative changes. <Electronically signed by Shashi Murrieta > 12/02/20 [id number]
== END ==
LOC: M WUC 14:50
PROVIDERS: ATTEND Physician Assistant
DX: M25.551 Pain in right hip (principal)

== ENCOUNTER → 2021-01-28 | Outpatient (RCR) | payer OTHER ==
[~2021-01-28] MED LIST changes: +GABA-283 PO; -GABA-845 PO
== END ==
LOC: M PT 01-08 10:41
PROVIDERS: ATTEND Physician Assistant
DX: M25.551 Pain in right hip (principal)

== ENCOUNTER 2021-02-11 14:45 | Outpatient (RCR) | payer OTHER | END 2021-02-28 | LOC: M PT 14:45 | PROVIDERS: ATTEND Physician Assistant | DX: M25.551 Pain in right hip (principal) ==

== ENCOUNTER → 2021-05-27 | Outpatient (CLI) | payer OTHER ==
[2021-05-27 09:17] LABS: BASO % 0.6 % (0.0-1.0); EOS # 0.1 10^3/uL (0.0-0.5); EOS % 1.3 % (0.0-3.0); HEMATOCRIT 38.8 % (36.0-47.0); HEMOGLOBIN 12.5 g/dl (12.0-15.5); LYMPH # 2.1 10^3/uL (1.5-5.0); LYMPH % 29.5 % (24.0-44.0); MEAN CORPUSCULAR HEMOGLOBIN 30.8 pg (27.0-33.0); MEAN CORPUSCULAR HGB CONC 32.2 g/dl (32.0-36.5); MEAN CORPUSCULAR VOLUME 95.6 fl (80.0-96.0); MONO # 0.4 10^3/uL (0.0-0.8); MONO % 5.6 % (2.0-8.0); NEUTROPHILS # 4.4 10^3/uL (1.5-8.5); NEUTROPHILS % 62.6 % (36.0-66.0); PLATELET COUNT, AUTOMATED 353 10^3/uL (150-450); RED BLOOD COUNT 4.06 10^6/uL (4.00-5.40)
[2021-05-27 09:57] LABS: ALBUMIN 3.5 GM/DL (3.2-5.2); ALT/SGPT 21 U/L (12-78); BILIRUBIN,TOTAL 0.5 MG/DL (0.2-1.0); BLOOD UREA NITROGEN 7 MG/DL (7-18); CALCIUM LEVEL 8.8 MG/DL (8.5-10.1); CARBON DIOXIDE LEVEL 27 MEQ/L (21-32); CHLORIDE LEVEL 110 MEQ/L (98-107); CHOLESTEROL LEVEL 215 MG/DL (<200); CHOLESTEROL RISK RATIO 3.583 (<5); CREATININE FOR GFR 0.66 MG/DL (0.55-1.30); GLOMERULAR FILTRATION RATE > 60.0 (>60); GLUCOSE, FASTING 95 MG/DL (70-100); HDL CHOLESTEROL 60 MG/DL (>40); LDL CHOLESTEROL 138 MG/DL (<100); NON-HDL-C 155 MG/DL; POTASSIUM SERUM 4.3 MEQ/L (3.5-5.1); SODIUM LEVEL 140 MEQ/L (136-145); TOTAL PROTEIN 6.5 GM/DL (6.4-8.2); TRIGLYCERIDES LEVEL 84 MG/DL (<150)
== END ==
LOC: M LAB 07:50
PROVIDERS: ATTEND Physician Assistant
DX: Z51.81 Encounter for therapeutic drug level monitoring (principal); Z79.899 Other long term (current) drug therapy

== ENCOUNTER 2022-03-19 06:55 | Emergency (ER) | payer OTHER ==
[~2022-03-19] VITALS: Ht 167.6 cm; Wt 70.5 kg
[2022-03-19] MEDS ORDERED: MORPHINE 10 MG/ML 1ML VIAL IM ONE (09:10)
[2022-03-19] MEDS ORDERED: ONDANSETRON 4MG ORAL DISINTEGRATING TAB PO ONE (09:10)
[2022-03-19] MEDS ORDERED: ACETAMINOPHEN 500 MG TAB PO ONE (09:10)
[2022-03-19] MEDS ORDERED: ALPR1TAB3 PO (09:21)
[2022-03-19] MEDS ORDERED: ADDE10CA3 PO (09:21)
[2022-03-19] MEDS ORDERED: ADDE20CA3 PO (09:21)
[2022-03-19] MEDS ORDERED: DULO60CA35 PO (09:21)
[2022-03-19] MEDS ORDERED: TEMA30CA PO (09:21)
[2022-03-19] MEDS ORDERED: RISP-10 PO (09:21)
[2022-03-19] MEDS ORDERED: VITA100093 PO (09:21)
[2022-03-19] MEDS ORDERED: MELO15TA28 PO (09:21)
[2022-03-19] MEDS ORDERED: GABA-282 PO (09:21)
[2022-03-19] MEDS ORDERED: HOME MED LIST COMPLETE! XX SCH (09:25)
[2022-03-19 10:14] VITALS: BP 109/62
== END 2022-03-19 10:19 | disposition home or self-care (01) ==
LOC: M ED 06:55
DX: U07.1 COVID-19 (principal); R52 Pain, unspecified; M79.7 Fibromyalgia; Z79.899 Other long term (current) drug therapy; Z88.2 Allergy status to sulfonamides
CPT/HCPCS: 87486; 87581; 87633; 87798; 96372; 99283; J2270

== ENCOUNTER → 2023-03-07 | Outpatient (CLI) | payer OTHER ==
[~2023-03-07] MED LIST changes: +ADDE10CA3 PO; +ADDE20CA3 PO; +ALPR1TAB3 PO; +DULO60CA35 PO; +GABA-282 PO; -GABA-283 PO; +GABA-284 PO; +RISP-10 PO; +TEMA30CA PO; +VITA100093 PO
[2023-03-07 13:08] LABS: HEMOGLOBIN A1c 5.2 % (4.0-6.0)
[2023-03-07 13:13] LABS: ALBUMIN 3.9 G/DL (3.2-5.2); ALKALINE PHOSPHATASE 59 U/L (46-116); ALT/SGPT 20 U/L (7.0-40); AST/SGOT 10 U/L (<34); BILIRUBIN,TOTAL 0.6 MG/DL (0.3-1.2); BLOOD UREA NITROGEN 17 MG/DL (9-23); CALCIUM LEVEL 9.3 MG/DL (8.5-10.1); CARBON DIOXIDE LEVEL 29 MMOL/L (20-31); CHLORIDE LEVEL 105 MMOL/L (98-107); CHOLESTEROL LEVEL 164 MG/DL (<200); CHOLESTEROL RISK RATIO 2.44 (<5); CREATININE FOR GFR 0.73 MG/DL (0.55-1.30); GLOMERULAR FILTRATION RATE > 60.0 (>60); GLUCOSE, FASTING 79 MG/DL (60-100); HDL CHOLESTEROL 67.2 MG/DL (>40); LDL CHOLESTEROL 88.2 MG/DL (<100); NON-HDL-C 96.8 MG/DL; SODIUM LEVEL 142 MMOL/L (136-145); TOTAL PROTEIN 6.5 G/DL (5.7-8.2); TRIGLYCERIDES LEVEL 43 MG/DL (<150)
[2023-03-07 13:16] LABS: THYROID STIMULATING HORMONE 1.523 uIU/ML (0.55-4.78)
[2023-03-07 13:17] LABS: TOTAL 25(OH) VITAMIN D 45.5 NG/ML (20.0-100.0)
== END ==
LOC: M LAB 11:56
PROVIDERS: ATTEND Nurse Practitioner Family
DX: Z00.00 Encounter for general adult medical examination without abnormal findings (principal)

== ENCOUNTER → 2024-01-24 | Outpatient (REF) | payer OTHER ==
[~2024-01-24] MED LIST changes: -RISP-10 PO; +RISP3TAB77 PO
[2024-01-25 12:51] LABS: ALBUMIN 4.1 G/DL (3.2-5.2); ALKALINE PHOSPHATASE 57 U/L (46-116); ALT/SGPT 20 U/L (7.0-40); AST/SGOT 9 U/L (<34); BILIRUBIN,TOTAL 0.5 MG/DL (0.3-1.2); BLOOD UREA NITROGEN 11 MG/DL (9-23); CALCIUM LEVEL 9.2 MG/DL (8.5-10.1); CARBON DIOXIDE LEVEL 32 MMOL/L (20-31); CHLORIDE LEVEL 108 MMOL/L (98-107); CHOLESTEROL LEVEL 202 MG/DL (<200); CHOLESTEROL RISK RATIO 2.74 (<5); CREATININE FOR GFR 0.78 MG/DL (0.55-1.30); GLOMERULAR FILTRATION RATE > 60.0 (>60); GLUCOSE, FASTING 101 MG/DL (60-100); HDL CHOLESTEROL 73.7 MG/DL (>40); LDL CHOLESTEROL 106.3 MG/DL (<100); NON-HDL-C 128.3 MG/DL; POTASSIUM SERUM 4.3 MMOL/L (3.5-5.1); SODIUM LEVEL 143 MMOL/L (136-145); TOTAL PROTEIN 6.8 G/DL (5.7-8.2); TRIGLYCERIDES LEVEL 110 MG/DL (<150)
[2024-01-25 12:53] LABS: THYROID STIMULATING HORMONE 0.582 uIU/ML (0.55-4.78); TOTAL 25(OH) VITAMIN D 27.5 NG/ML (20.0-100.0)
[2024-01-25 13:06] LABS: HEMOGLOBIN A1c 5.1 % (4.0-6.0)
[2024-01-25 13:26] LABS: HEPATITIS C VIRUS ABY INDEX 0.05 INDEX (<0.8)
== END ==
LOC: M LAB REF 11:22
PROVIDERS: ATTEND Physician Assistant
DX: Z11.9 Encounter for screening for infectious and parasitic diseases, unspecified (principal); E66.3 Overweight; E55.9 Vitamin D deficiency, unspecified

== ENCOUNTER 2024-11-15 15:42 | Emergency (ER) | payer OTHER ==
[~2024-11-15] VITALS: Ht 167.6 cm; Wt 72.1 kg
[~2024-11-15 15:42] MED LIST changes: +GABA-1172 PO; -GABA-282 PO
[2024-11-15 15:53] VITALS: TEMP 99.2
[2024-11-15] MEDS ORDERED: AMOX875T2 PO (19:54)
[2024-11-15] MEDS: RABIES VACCINE HUMAN 2.5 INTERNATIONAL UNITS/ML VIAL (IMOVAX) IM ONE (20:06)
[2024-11-15] MEDS: RABIES IMMUNE GLOBULIN 1500 INTERNATIONAL UNIT/5ML VIAL IM.IMMUN ONE (20:10)
[2024-11-15 20:29] VITALS: BP 115/70; O2SAT 99
== END 2024-11-15 20:30 | disposition home or self-care (01) ==
LOC: EDBD 15:42 → M ED 15:42
DX: S61.431A Puncture wound without foreign body of right hand, initial encounter (principal); W54.0XXA Bitten by dog, initial encounter; Y92.410 Unspecified street and highway as the place of occurrence of the external cause; Y93.K1 Activity, walking an animal; Y99.9 Unspecified external cause status; Z20.3 Contact with and (suspected) exposure to rabies; Z23 Encounter for immunization; Z88.1 Allergy status to other antibiotic agents; Z88.2 Allergy status to sulfonamides; Q07.00 Arnold-Chiari syndrome without spina bifida or hydrocephalus; F17.200 Nicotine dependence, unspecified, uncomplicated; Z79.899 Other long term (current) drug therapy

== ENCOUNTER → 2025-02-18 | Outpatient (CLI) | payer OTHER ==
[~2025-02-18] MED LIST changes: +AMOX875T2 PO
== END ==
LOC: M RAD 14:44
PROVIDERS: ATTEND Physician Assistant
DX: R06.2 Wheezing (principal)

== ENCOUNTER → 2025-04-11 | Outpatient (CLI) | payer OTHER | LOC: M CARPUL 13:06 | PROVIDERS: ATTEND Physician Assistant | DX: R05.3 Chronic cough (principal) ==